=== PATIENT | male | born 1965 | race Caucasian/White ===

== ENCOUNTER 2021-01-13 15:20 | Inpatient (IN) | payer MEDICAID ==
[~2021-01-13] VITALS: Ht 167.6 cm; Wt 75.3 kg
[2021-01-13] MEDS ORDERED: SODIUM CHLORIDE FLUSH 10ML SYR IVF ONE (15:30)
--- NOTE | 2021-01-13 15:31 | NUR ---
SARA FROM [facility] FOR THROAT AND MOUTH SWELLING. PT DIAGNOSED WITH LUDWIGS ANGINA AND TRANSFERED HERE FOR ENT CONSULT. PT STATES HE WAS TAKING CLINDAMYCIN FOR 3 DAYS, SAW DENTIST AND WAS SWITCHED TO AMOXICILLIN 500 MG BID AND HAS TAKEN ONE DAY OF AMOXICILLIN. PT ALSO HAD APPOITMENT TO GET ABSCESS REMOVED BY DENTIST. PRIOR TO TRANSFER PT RECIEVED 0.5 MG DILAUDID IV, 600 MG IV CLINDAMYCIN AT 1245, AND 1 L LR. PT 20 GAUGE PIV IN LEFT AC. COVID TEST NEGATIVE FROM PREVIOUS FACILITY.
--- NOTE | 2021-01-13 15:32 | NUR ---
pt npo since "last night".
[2021-01-13] MEDS ORDERED: MIDAZOLAM 1 MG/ML, 2ML ONE (15:42)
[2021-01-13] MEDS ORDERED: FENTANYL PF 250 MCG/5ML ONE (15:42)
--- NOTE | 2021-01-13 15:46 | NUR ---
PT TO XRAY
[2021-01-13] MEDS ORDERED: KETAMINE 10 MG/ML, 20ML ONE (15:51)
[2021-01-13] MEDS ORDERED: SODIUM CHLORIDE 0.9% 1,000 ML IV ONE (16:00)
[2021-01-13] MEDS ORDERED: SODIUM CHLORIDE FLUSH 10ML SYR IVF PRN (16:00)
--- NOTE | 2021-01-13 16:07 | NUR ---
report given to [employer] STRAIGHTENER
[2021-01-13] MEDS ORDERED: NEOSPORIN OINT, 15GM ONE (16:10)
[2021-01-13] MEDS ORDERED: EPINEPHRINE 1 MG/ML, 1ML ONE (16:10)
[2021-01-13] MEDS ORDERED: LIDOCAINE 1%, 20ML ONE (16:10)
[2021-01-13] MEDS ORDERED: AMPICILLIN/SULBACTAM 3 GM in SODIUM CHLORIDE 0.9% 100 ML IV ONE (16:30)
[2021-01-13] MEDS ORDERED: AMPICILLIN/SULBACTAM 3 GM in SODIUM CHLORIDE 0.9% 100 ML IV SCH (17:00)
[2021-01-13] MEDS ORDERED: PROPOFOL 10 MG/ML, 20ML ONE (17:13)
[2021-01-13] MEDS ORDERED: ONDANSETRON 2MG/ML, 2ML ONE (17:13)
[2021-01-13] MEDS ORDERED: LIDOCAINE-MPF 2% ,5ML ONE (17:13)
[2021-01-13] MEDS ORDERED: LABETALOL 5MG/ML, 20ML IV PRN (17:30)
[2021-01-13] MEDS ORDERED: PROMETHAZINE 25 MG/ML, 1ML IVPush PRN (17:30)
[2021-01-13] MEDS ORDERED: FENTANYL PF 100 MCG/2ML IV PRN (17:30)
[2021-01-13] MEDS ORDERED: DIAZEPAM 5 MG/ML, 2ML IVPush PRN (17:30)
[2021-01-13] MEDS ORDERED: OXYcodone 5 MG/5 ML ORAL.SOL UDC PO PRN (17:30)
[2021-01-13] MEDS ORDERED: DIPHENHYDRAMINE 50 MG/ML, 1ML IVPush PRN ×2 (17:30→19:30)
[2021-01-13] MEDS ORDERED: ACETAMINOPHEN 325 MG TABLET PO PRN (17:30)
[2021-01-13] MEDS ORDERED: MEPERIDINE/PF 25MG/0.5ML IVPush PRN (17:30)
[2021-01-13] MEDS ORDERED: ONDANSETRON 2MG/ML, 2ML IVPush PRN (17:30)
[2021-01-13] MEDS ORDERED: hydrALAzine 20 MG/ML, 1ML IV PRN (17:30)
[2021-01-13] MEDS ORDERED: HYDROmorphone 1 MG/ML, 1ML INJ IVPush PRN (17:30)
[2021-01-13 19:20] VITALS: BP 147/95
[2021-01-13] MEDS ORDERED: DIPHENHYDRAMINE 25 MG CAPSULE PO PRN (19:30)
[2021-01-13] MEDS ORDERED: HYDROcodone/APAP 7.5-325MG/15ML UDC PO PRN (19:30)
[2021-01-13] MEDS ORDERED: ONDANSETRON 2MG/ML, 2ML IV PRN (19:30)
[2021-01-13] MEDS: KETOROLAC 30 MG/1 ML IV PRN (20:37)
[2021-01-13] MEDS: AMPICILLIN/SULBACTAM 3 GM in SODIUM CHLORIDE 0.9% 100 ML IV SCH (21:59)
[2021-01-14 00:04] VITALS: BP 146/83
[2021-01-14 04:00] VITALS: BP 149/82
[2021-01-14] MEDS: AMPICILLIN/SULBACTAM 3 GM in SODIUM CHLORIDE 0.9% 100 ML IV SCH ×4 (04:17→22:01)
[2021-01-14] MEDS: KETOROLAC 30 MG/1 ML IV PRN ×2 (04:19→22:01)
[2021-01-14 05:42] LABS: BASOPHILS % (AUTO) 1 % (0-1); EOSINOPHILS % (AUTO) 0 % (1-7); LYMPHOCYTES % (AUTO) 20 % (22-44); MEAN CORPUSCULAR HGB CONC 33.8 g/dL (33.2-36.2); MEAN PLATELET VOLUME 7.3 fL (7.4-10.4); MONOCYTES % (AUTO) 13 % (2-9); NEUTROPHILS % (AUTO) 66 % (42-75); PLATELET COUNT 218 x10^3/uL (130-400); RED BLOOD COUNT 3.67 x10^6/uL (4.38-5.82); RED CELL DISTRIBUTION WIDTH 14.2 % (9.4-14.8)
[2021-01-14 05:43] LABS: MD NO
[2021-01-14 06:50] LABS: ANION GAP 4 mmol/L (5-15); CALCIUM 8.1 mg/dL (8.5-10.1); CHLORIDE 106 mmol/L (98-107)
[2021-01-14 06:59] VITALS: BP 131/90
[2021-01-14] MEDS ORDERED: POTASSIUM CHLORIDE 20 MEQ TAB.ER.PRT PO ONE (09:30)
[2021-01-14 12:43] VITALS: BP 131/90
[2021-01-14 19:49] VITALS: BP 149/96
[2021-01-15 00:40] VITALS: BP 154/97
[2021-01-15] MEDS: AMPICILLIN/SULBACTAM 3 GM in SODIUM CHLORIDE 0.9% 100 ML IV SCH (04:06)
[2021-01-15] MEDS: KETOROLAC 30 MG/1 ML IV PRN (04:06)
[2021-01-15 05:06] LABS: MEAN CORPUSCULAR HEMOGLOBIN 31.2 pg (27.5-34.5); MEAN PLATELET VOLUME 7.5 fL (7.4-10.4); PLATELET COUNT 236 x10^3/uL (130-400); RED BLOOD COUNT 3.54 x10^6/uL (4.38-5.82); RED CELL DISTRIBUTION WIDTH 14.3 % (9.4-14.8)
[2021-01-15 05:17] LABS: ANION GAP 2 mmol/L (5-15); CHLORIDE 108 mmol/L (98-107); CREATININE 0.61 mg/dL (0.7-1.3)
[2021-01-15 05:40] LABS: MD YES
[2021-01-15 05:42] LABS: <RBC MORPHOLOGY> NORMAL; BAND#(MANUAL) 0.13 x10^3/uL; BANDS%(MANUAL) 2 % (0-7); BASOS#(MANUAL) 0.06 x10^3/uL (0-0.1); BASOS% (MANUAL) 1 % (0-1); LYMPH#(MANUAL) 1.45 x10^3/uL (1-3.4); LYMPHS% (MANUAL) 23 % (22-44); MONOS#(MANUAL) 0.57 x10^3/uL (0.3-2.7); MONOS% (MANUAL) 9 % (2-9); MYELOCYTES# (MANUAL) 0.13 x10^3/uL (0-0); MYELOCYTES% (MANUAL) 2 % (0-0); SEG#(MANUAL) 3.97 x10^3/uL (1.8-6.8); SEGS% (MANUAL) 63 % (42-75)
[2021-01-15 05:43] LABS: <PLATELET ESTIMATE> ADEQUATE; <PLT MORPHOLOGY> NORMAL PLT MORPH
[2021-01-15 07:24] VITALS: BP 138/91
[2021-01-15] MEDS ORDERED: AMOXICILLIN/CLAV 875-125MG TABLET PO ONE (10:00)
[2021-01-15 13:30] VITALS: BP 155/99
[2021-01-15] MEDS ORDERED: HYDR-2214 PO (15:14)
[2021-01-15] MEDS ORDERED: AMOX1TAB64 PO (15:14)
[2021-01-15] MEDS ORDERED: LACT1CAP35 PO (15:14)
== END 2021-01-15 15:40 | disposition home or self-care (01) | DRG 158 ==
LOC: EDSEX 15:20 → OR 15:45 → EDIP 15:46 → 4NE 18:58 → DCLOUNGE 01-15 15:33
PROVIDERS: ADMIT Family Medicine; ATTEND Family Medicine
PROC: 0CDXXZ0 Extraction of Lower Tooth, Single, External Approach (ICD-10-PCS; 2021-01-13)
PROC: 0J9100Z Drainage of Face Subcutaneous Tissue and Fascia with Drainage Device, Open Approach (ICD-10-PCS; principal; 2021-01-13 16:00)
DX: K12.2 Cellulitis and abscess of mouth (principal); R65.10 Systemic inflammatory response syndrome (SIRS) of non-infectious origin without acute organ dysfunction; S02.5XXA Fracture of tooth (traumatic), initial encounter for closed fracture; D64.9 Anemia, unspecified; F10.20 Alcohol dependence, uncomplicated; F12.90 Cannabis use, unspecified, uncomplicated; F17.210 Nicotine dependence, cigarettes, uncomplicated; I10 Essential (primary) hypertension; K04.6 Periapical abscess with sinus; Z20.822 Contact with and (suspected) exposure to COVID-19; Z66 Do not resuscitate; V19.9XXA Pedal cyclist (driver) (passenger) injured in unspecified traffic accident, initial encounter; Y93.55 Activity, bike riding; Y92.89 Other specified places as the place of occurrence of the external cause; Y99.8 Other external cause status
CPT/HCPCS: 36415; 70100; 96374; 99285; J3490; 80048; 85025; 87070; 87075; 87076; 87077; 87205; G0378; J0171; J0295; J1885; J2250; J2405; J2704; J3010; J7030